=== PATIENT | male | born 1945 | race Caucasian/White ===

== ENCOUNTER 2016-11-27 09:59 | Day surgery (SDC) | payer MEDICARE, OTHER ==
[2016-11-22 08:38] VITALS: BMI 20.7
[~2016-11-27 09:59] MED LIST: LACTATED RINGERS 1,000 ML IV SCH
[2016-11-27 10:24] VITALS: RESP 16; TEMP 97.1
[2016-11-27] MEDS ORDERED: LIDOCAINE 1% 20 ML VIAL (10MG/ML) FOR IV START INTRADERMA ONE (10:25)
[2016-11-27] MEDS ORDERED: PROPOFOL 10 MG/ML 20 ML VIAL IV ONE (10:57)
--- NOTE | 2016-11-27 11:23 | P.PCN ---
Date of Procedure: 11/27/16 Procedure(s) Performed: Procedure: Total colonoscopy. Preoperative diagnosis: Screening for neoplasia, patient had recent history of diverticulitis. Postoperative diagnosis: Diffuse diverticulosis with no evidence of acute diverticulitis, strictures, polyps or cancer. Preparation: HalfLytely prep. Sedation: Was provided by anesthesia. Brief clinical history: The patient is a 71-year-old male who was hospitalized for diverticulitis in August of last year. The patient had a colonoscopy more than 13 years ago and he has family history of colon cancer in a paternal uncle who had cancer at a younger age. Procedure: With the patient on his left lateral decubitus position and after informed consent and adequate sedation, the perianal area was inspected and it did not show any fissures or fistulas. There were no masses felt on digital rectal examination. The Olympus CFQ 160L video colonoscope was then inserted in the rectum in the usual fashion and advanced to the cecum. There were multiple diverticular orifices seen scattered along the length of the bowel, more obvious on the left side with no evidence of acute diverticulitis or strictures. No polyps or tumors were seen. The mucosa appeared healthy. I retroflexed endoscope in the rectum before the endoscope was withdrawn. The patient tolerated the procedure well. Plan: The patient was reassured. Discussed dietary measures. He will follow up with you as planned. Further plans based on his course.
[2016-11-27 11:50] VITALS: BP 124/71; PULSE 67
== END 2016-11-27 12:23 | disposition home or self-care (01) ==
LOC: ORWHC2ENDO 09:59
DX: Z12.11 Encounter for screening for malignant neoplasm of colon (principal); K57.30 Diverticulosis of large intestine without perforation or abscess without bleeding; Z88.7 Allergy status to serum and vaccine
CPT/HCPCS: J2704; G0121; 99153

== ENCOUNTER → 2017-07-25 | Outpatient (CLI) | payer MEDICARE, OTHER | END | disposition home or self-care (01) | LOC: LABWHC1 09:28 | PROVIDERS: ATTEND Urology | DX: R97.20 Elevated prostate specific antigen [PSA] (principal) | CPT/HCPCS: 36415; 84153 ==

== ENCOUNTER → 2018-01-15 | Outpatient (CLI) | payer MEDICARE, OTHER | END | disposition home or self-care (01) | LOC: LABWHC1 11:06 | PROVIDERS: ATTEND Urology | DX: C61 Malignant neoplasm of prostate (principal) | CPT/HCPCS: 36415; 84153 ==

== ENCOUNTER → 2018-06-27 | Outpatient (CLI) | payer MEDICARE, OTHER | END | disposition home or self-care (01) | LOC: LABWHC1 10:41 | PROVIDERS: ATTEND Urology | DX: C61 Malignant neoplasm of prostate (principal) | CPT/HCPCS: 36415; 84153 ==

== ENCOUNTER → 2019-02-19 | Outpatient (CLI) | payer MEDICARE, OTHER | END | disposition home or self-care (01) | LOC: LABWHC1 08:22 | PROVIDERS: ATTEND Urology | DX: C61 Malignant neoplasm of prostate (principal) | CPT/HCPCS: 36415; 84153 ==

== ENCOUNTER 2019-05-15 11:18 | Day surgery (SDC) | payer MEDICARE ==
[2019-05-06 11:02] VITALS: BMI 20.5
[~2019-05-15 11:18] MED LIST changes: +ACETAMINOPHEN TAB 500 MG TAB PO ONE; +HYDROmorphone 0.5 MG/0.5 ML SYRINGE IVP PRN; +MELOXICAM 7.5 MG TAB PO ONE; +ONDANSETRON 4 MG/2 ML VIAL IVP ONE; +ONDANSETRON 4 MG/2 ML VIAL IVP PRN; +TRANEXAMIC ACID 1,000 MG in SODIUM CHLORIDE 0.9% 100 ML IVPB ONE
[2019-05-15] MEDS ORDERED: LACTATED RINGERS 1,000 ML IV ONE (11:33)
[2019-05-15 11:37] VITALS: TEMP 97.5
[2019-05-15] MEDS ORDERED: DEXAMETHASONE SOD PHOS (MDV) 100 MG/10 ML VIAL IVP ONE (11:50)
[2019-05-15] MEDS ORDERED: LIDOCAINE 1% 20 ML VIAL (10MG/ML) FOR IV START INTRADERMA ONE (11:51)
[2019-05-15] MEDS ORDERED: MIDAZOLAM (PF) 2 MG/2 ML VIAL IVP ONE (12:07)
[2019-05-15] MEDS ORDERED: LIDOCAINE 1% INJ 10MG/ML (20 ML MDV) ONE (12:31)
[2019-05-15] MEDS ORDERED: SUCCINYLCHOLINE CHLORIDE 100 MG/5 ML SYR IV ONE (12:31)
[2019-05-15] MEDS ORDERED: ROPIVACAINE 5 MG/ML 30 ML VIAL ONE (12:31)
[2019-05-15] MEDS ORDERED: PROPOFOL 10 MG/ML 20 ML VIAL IV ONE (12:31)
[2019-05-15] MEDS ORDERED: fentaNYL (PF) 50 MCG/ML 2 ML AMP ONE (12:31)
[2019-05-15] MEDS ORDERED: ePHEDrine SULFATE/0.9% NACL/PF 50 MG/5 ML SYRINGE IV ONE (12:31)
[2019-05-15] MEDS ORDERED: EPINEPHrine (PF) 1 ML in SODIUM CHLORIDE 0.9% IRRIGATIO 3,000 ML IRRIGATION ONE ×8 (12:49→12:50)
--- NOTE | 2019-05-15 13:23 | P.ANPRN ---
Procedure Note - Anesthesia - Nerve Block Performed Left Interscalene Single Time Out Performed: Yes Date of Procedure: 05/15/19 Procedure Start Time: 12:14 Procedure Stop Time: 12:21 Location of Patient Procedure: PreOp Indication: Acute Post-Operative Pain, Requested by physician Sedation Type: Sedate with meaningful contact maintained Preparation: Sterile Prep, Sterile Dressing Position: Sitting Catheter: None Needle Types: Pajunk Needle Gauge: 20 Technique: Ultrasound Injectate: 0.5% Ropivacaine (see comment for volume) (30 ml + decadron 10 mg) Blood Aspirated: No Pain Paresthesia on Injection Noted: No Resistance on Injection: Normal Events: Uneventful and Well Tolerated
[2019-05-15 15:30] VITALS: RESP 17
[2019-05-15 16:08] VITALS: BP 125/70; PULSE 70
--- NOTE | 2019-05-19 17:33 | P.OP ---
Date of Procedure: 05/15/19 Implants: PREOPERATIVE DIAGNOSES: 1. Left shoulder rotator cuff tendinopathy. 2. Chronic impingement syndrome. 3. Acromioclavicular osteoarthritis. 4. Superior labral degenerative tear. POSTOPERATIVE DIAGNOSES: 1. Left shoulder rotator cuff tear (supraspinatus high-grade partial tear, 1 cm). 2. Chronic impingement syndrome. 3. Acromioclavicular osteoarthritis. 4. Labral degenerative tear. PROCEDURES PERFORMED: 1. Left shoulder arthroscopy with rotator cuff repair 2. Arthroscopic subacromial decompression 3. Arthroscopic debridement superior labral tear 4. Arthroscopic partial distal clavicle excision ANESTHESIA: General. ESTIMATED BLOOD LOSS: Less than 25 mL TOURNIQUET: None CARDIOLOGY CONSULTANTS: Chasity Cordoba PA-C (assistance with: Positioning, retraction, camera operation, repair, closure, dressing) COMPLICATIONS: None. DISPOSITION: To postanesthesia care unit INDICATIONS: Mr. Mcguire is a 73 year old male with a history of rotator cuff difficulties. MRI was suspicious for a tear, and the patient wishes to have it repaired. I have examined the patient in the office and proposed rotator cuff repair via an arthroscopic or mini-open approach, as well as other procedures to optimize the shoulder and outcome, such as decompression of spurs and debridement of loose or degenerated tissue. I have explained the risks of this surgery as being inclusive of, but not limited to: bleeding, infection, scarring, discomfort, blood vessel and/or nerve damage, need for further surgery, stiffness, persistence or worsening of problems, , and other risks. The consent form has been completed and signed. PROCEDURE: Appropriate consent was obtained from the patient. The patient was taken to the operating room and placed in the supine position. General anesthesia was initiated and after confirmation of adequate anesthesia, the patients right shoulder was examined. Initial range of motion showed flexion to 170 abduction to 170, external rotation to 70 and internal rotation to 70. The shoulder was stable. Next, the patient was rotated into the lateral decubitus position and stabilized to the table with a velasco bag and padded straps. Care was taken to make sure that all pressure points were adequately padded. Bear-hugger was used along with bilateral leg sequential compression devices. Prepping and draping was completed in the usual aseptic fashion using ChloraPrep. The patient received intravenous antibiotics prior to incision. The shoulder was suspended from traction with 15 lbs. of weight in a position of 45 degrees abduction. Landmarks were outlined with a skin marking pen. A spinal needle was inserted into the glenohumeral joint and fluid was administered to distend the joint. Some pressure was noted after 100 mL was administered. A posterior portal was created using an 11 blade and the arthroscopic canula, over a dull trocar, was carefully inserted into the joint. Arthroscopy then commenced. An anterior portal was inserted in the rotator interval area using inside-out technique. Biceps tendon was normal. Infraspinatus, subscapularis, and teres minor attachments were normal. Hyaline cartilage of the glenoid and humeral head showed degenerative changes typical for age. Supraspinatus attachment on this articular side showed really no significant detachment. No loose bodies were noted in the joint. Superior labrum showed some degenerative tearing but was well-attached. Negative peel back sign. There was also evidence of minor degenerative labral tearing in the inferior area. Loose fibers of labrum in this area were debrided away back to stable labrum. Synovitis was noted superior to the superior labrum and within the rotator interval. This was debrided and removed where the capsule appeared inflamed, using an arthroscopic shaver. Attention was then directed to the subacromial space. The camera and instruments were redirected into the subacromial space and bursoscopy was performed. The patients bursa was inflamed and thickened, indicating chronic bursitis. A lateral portal was created using outside-in technique. Spur complex was noted on the anterior inferior lateral aspect of the acromion. The supraspinatus tendon was examined particularly closely. There was an area approximately 2 cm x 2 cm on the superior aspect of the cuff which was highly abraded by the spur complex. The area approximate 1 cm in size had evidence of high grade partial tearing of the super spinatus tendon and this area was debrided down to a full-thickness defect which was then subsequently repaired as follows. The loose fibers of the tear were debrided back to stable tissue and the defect in the tendon was repaired arthroscopically after careful preparation of the supraspinatus footprint with keron and rasp to create a good bleeding surface of bone, see below. The undersurface of the acromion had frictional changes consistent with impingement syndrome. The underside of the acromion anteriorly was cleared of soft tissue using an arthroscopic radiofrequency ablator. Care was taken while using the ablator not to exceed 40 degrees Centigrade within the bursa. The frictional changes of the rotator cuff matched exactly the location of the rotator cuff tear in the critical zone. A formal subacromial decompression was performed using a keron. Approximately 4 mm of material was removed from the anterior-inferior corner of the acromion. This resection was beveled upwards laterally, and carried to the AC joint. The AC joint appeared arthritic with inferior spurring. This spurring was removed with a keron, co-planing the resection with the acromial resection. The rotator cuff tear was then repaired as follows. A posterolateral portal was created using outside-in technique. A reverse mattress suture using Fiber Tape from [employer] was deployed into the torn supraspinatus edge. A 4.75 mm Swivelock anchor was then deployed at the greater tuberosity and the suture tension was adjusted so that there was complete reduction and coverage of the footprint. Suture tails were then cut, producing a knotless repair. The accessory suture in the anchor was then also used to bring tissue to the repair site and further stabilize the repair with a simple suture. This was tied down using alternating half hitches arthroscopically. It was noted that there was complete closure of the cuff defect. The repair was stable. Subsequently, 4-0 Monocryl was used to close the portal holes. Steri-strips were applied as well as sterile dressing. The shoulder was then placed into a sling and the patient was transferred to recovery room in stable condition. Sponge and needle counts were correct.
== END 2019-05-15 12:32 | disposition home or self-care (01) ==
LOC: OR 11:18
PROVIDERS: ATTEND Orthopaedic Surgery
DX: M75.102 Unspecified rotator cuff tear or rupture of left shoulder, not specified as traumatic (principal); S43.432A Superior glenoid labrum lesion of left shoulder, initial encounter; W00.0XXA Fall on same level due to ice and snow, initial encounter; M19.012 Primary osteoarthritis, left shoulder; M75.42 Impingement syndrome of left shoulder; M65.9 Synovitis and tenosynovitis, unspecified; M75.52 Bursitis of left shoulder; C61 Malignant neoplasm of prostate; K57.90 Diverticulosis of intestine, part unspecified, without perforation or abscess without bleeding; K50.90 Crohn's disease, unspecified, without complications; Z83.3 Family history of diabetes mellitus; Z98.49 Cataract extraction status, unspecified eye; Z88.5 Allergy status to narcotic agent; Z85.828 Personal history of other malignant neoplasm of skin; Z88.7 Allergy status to serum and vaccine
CPT/HCPCS: 64415; 29826; 29827; 29824; C1713 ×2; C1894; J0690; J2405; J0171; J2001; J3010; J1100; J2795; J0330; J2704; J2250

== ENCOUNTER → 2019-11-19 | Outpatient (CLI) | payer MEDICARE | END | disposition home or self-care (01) | LOC: LABWHC1 10:07 | PROVIDERS: ATTEND Otolaryngology | DX: G50.1 Atypical facial pain (principal); R53.83 Other fatigue | CPT/HCPCS: 36415; 85652; 86038; 86431 ==

== ENCOUNTER → 2020-07-13 | Outpatient (CLI) | payer MEDICARE ==
--- NOTE | 2020-07-13 13:38 | US ---
EXAMINATION TYPE: US groin LT DATE OF EXAM: 07/13/2020 COMPARISON: NONE CLINICAL HISTORY: M25.552 Left hip pain. Patient states about 1 month ago he tripped and took a miss step down a few stairs and has had left groin pain ever since Left groin: multiple normal appearing lymph nodes seen, no abnormality seen at this time If Additional evaluation would be of benefit, MRI could be utilized. IMPRESSION: 1. Small left inguinal lymphadenopathy. 2. No suspicious soft tissue abnormality evident.
== END | disposition home or self-care (01) ==
LOC: RADUSWWP 10:50
PROVIDERS: ATTEND Orthopaedic Surgery
DX: R59.0 Localized enlarged lymph nodes (principal); M25.552 Pain in left hip; M76.12 Psoas tendinitis, left hip